=== PATIENT | female | born 1955 | race Caucasian/White ===

== ENCOUNTER 2017-02-24 08:02 | Day surgery (SDC) | payer BC ==
[~2017-02-24] VITALS: Ht 165.1 cm; Wt 71.7 kg
[2017-02-24] MEDS ORDERED: ceFAZolin 1GM/50ML D5W 50 ML IV ONE (08:22)
[2017-02-24] MEDS ORDERED: BUPIVACAINE 0.25% INJ 50ML VIAL ONE (08:44)
[2017-02-24] MEDS ORDERED: NEOMYCIN-BACITRACIN-POLYM 15GM TOP OINT TOP ONE (08:44)
[2017-02-24] MEDS ORDERED: BUPIVACAINE W/ EPINEPH 0.25% INJ 50ML MDV ONE (08:44)
[2017-02-24] MEDS ORDERED: NEOSTIGMINE 1 MG/ML INJ (10mg/10ML VIAL) IV ONE (09:08)
[2017-02-24] MEDS ORDERED: GLYCOPYRROLATE 0.2 MG/ML 1ML VIAL IV ONE (09:08)
[2017-02-24] MEDS ORDERED: MIDAZOLAM HCL 1MG/1ML-2 ML VIAL ONE (09:11)
[2017-02-24] MEDS ORDERED: fentaNYL CITRATE 100 MCG/2 ML VL ONE ×2 (09:11→09:39)
[2017-02-24] MEDS ORDERED: ROCURONIUM 10MG/ML 10ML VIAL IV ONE (09:14)
[2017-02-24] MEDS ORDERED: PROPOFOL 10 MG/ML 20 ML IV ONE (09:14)
[2017-02-24] MEDS ORDERED: METOCLOPRAMIDE HCL 5MG/ml INJ 2ml VIAL ONE (09:24)
[2017-02-24] MEDS ORDERED: ONDANSETRON HCL 4 MG/2 ML VIAL ONE (09:24)
[2017-02-24] MEDS ORDERED: DEXAMETHASONE SOD PHOS 10MG/1ML VIAL INJ ONE (09:25)
[2017-02-24] MEDS ORDERED: ceFAZolin 1GM VL ONE (09:26)
[2017-02-24] MEDS ORDERED: fentaNYL CITRATE 100 MCG/2 ML VL IV PRN (10:45)
[2017-02-24] MEDS ORDERED: hydrALAZINE HCL 20 MG/ML VL IV PRN (10:45)
[2017-02-24] MEDS ORDERED: ONDANSETRON HCL 4 MG/2 ML VIAL IV ONE (10:45)
[2017-02-24] MEDS ORDERED: KETOROLAC TROMETH 30 MG/ML 1ML VIAL IV ONE (10:45)
[2017-02-24] MEDS ORDERED: LABETALOL HCL 5 MG/ML 4ML SYRINGE IV ONE (11:14)
[2017-02-24] MEDS: HYDROmorphone HCL 2 MG/ML VL IV PRN ×3 (11:30→12:31)
[2017-02-24 13:35] VITALS: BP 115/71
== END 2017-02-24 13:35 | disposition home or self-care (01) ==
LOC: SUR 08:02
PROVIDERS: ATTEND Orthopaedic Surgery
DX: S82.851A Displaced trimalleolar fracture of right lower leg, initial encounter for closed fracture (principal); S82.891A Other fracture of right lower leg, initial encounter for closed fracture; M21.071 Valgus deformity, not elsewhere classified, right ankle; S93.491A Sprain of other ligament of right ankle, initial encounter; S93.401A Sprain of unspecified ligament of right ankle, initial encounter; X58.XXXA Exposure to other specified factors, initial encounter; Y93.89 Activity, other specified; Y92.89 Other specified places as the place of occurrence of the external cause; Y99.8 Other external cause status; Z90.710 Acquired absence of both cervix and uterus
CPT/HCPCS: 27625; 27695; 27822; 27829; 73600; 76000; C1713; J0690; J1100; J1170; J1885; J2250; J2405; J2704; J2765; J3010; J3490